=== PATIENT | male | born 1995 | race Caucasian/White ===

== ENCOUNTER 2024-12-21 11:08 | Outpatient (CLI) | payer OTHER, SELFPAY ==
--- NOTE | ~2024-12-21 | XR_ITS ---
EXAMINATION: XR hand BI arthritis min 3V, 12/21/2024 11:30 CDT HISTORY: M79.643 - Pain in unspecified hand COMPARISON: No comparisons available. Findings: No acute fracture or malalignment. Minimal degenerative changes, no erosions are identified Soft tissues unremarkable. Impression: No acute fracture or malalignment. Reviewed, dictated and finalized at location A. Impression: No acute fracture or malalignment.
[2024-12-21 12:00] LABS: Hematocrit 39.2 % (42.0-52.0); Hemoglobin 13.1 g/dL (14.0-18.0); Mean Corpuscular HGB Conc 33.4 g/dl (32-36); Mean Corpuscular Hemoglobin 29.9 pg (26-34); Mean Corpuscular Volume 89.5 fl (80-100); Platelet Count Result 186 k/mm3 (150-375); Red Blood Count 4.38 M/mm3 (4.6-6.20); White Blood Count 6.4 K/mm3 (4.5-10.0)
[2024-12-21 12:23] LABS: Alanine Aminotransferase 68 U/L (6-50); Albumin Level 4.4 g/dL (3.5-5.1); Alkaline Phosphatase 77 U/L (38-126); Anion Gap 8 mmol/L (4-12); Aspartate Amino Transferase 47 U/L (17-59); Bilirubin,Total 0.8 mg/dL (0.2-1.3); Blood Urea Nitrogen 14 mg/dL (9-20); Calcium 9.0 mg/dL (8.4-10.2); Carbon Dioxide 30 mmol/L (22-30); Chloride 103 mmol/L (98-107); Cholesterol 185 mg/dL (0-200); Estimated Glomerular Filt Rate > 60; Glucose 103 mg/dL (65-110); HDL Direct 24 mg/dL; Potassium 4.3 mmol/L (3.4-5.0); Sodium 141 mmol/L (137-145); Total Protein 7.5 g/dL (6.3-8.2); Triglycerides 218 mg/dL (<150)
[2024-12-21 12:58] LABS: Thyroid Stimulating Hormone 0.910 uIU/mL (0.465-4.680)
== END 2024-12-21 11:09 | disposition home or self-care (01) ==
LOC: ANHIMG 11:10
PROVIDERS: PCP Nurse Practitioner Adult Health; Visit Provider Plastic Surgery
DX: Z00.00 Encounter for general adult medical examination without abnormal findings (principal); M67.441 Ganglion, right hand
CPT/HCPCS: 36415; 73130; 80053; 80061; 84443; 85027

== ENCOUNTER 2025-02-14 11:07 | Day surgery (SDC) | payer OTHER, SELFPAY ==
[2025-01-20 10:08] VITALS: BMI 34.9
--- NOTE | 2025-02-14 07:06 | WPDHPUPDATE1 ---
History and Physical Update Update Date/Time: 02/14/25 07:06 Patient seen and examined in pre-operative holding area. No interval change in medical history or symptoms. Patient recalls previous discussion of benefits and alternatives to procedure. Continues to desire to proceed with right index finger mass excision . Reviewed procedure, post-op expectations and risks including but not limited to bleeding, infection, injury to tendon/nerve/vessel, decreased hand function, stiffness, RSD, no change or worsening of symptoms, recurrence. I discussed the possible use of assistants and their participation in the case. Patient stated understanding and signed the consent form wishing to proceed.
--- NOTE | 2025-02-14 07:07 | W.PM.PROC2 ---
Procedure Note - Detailed Date of Procedure 02/14/25 Pre-op Diagnosis Mass Right Index Finger Post-op Diagnosis Same Procedure Performed right index finger mass excision Surgeon Yue Barraza MD Special Delivery Clerk Jacklyn Beyer PA-C Anesthesia MAC Description of Procedure INFORMED CONSENT: The patient was seen and examined and marked in the pre-op area.? The patient signed the consent form. PROCEDURE IN DETAIL:The patient taken back to OR on the stretcher in supine position. Time out performed with anesthesia, surgeon and staff agreeing on patient's name site and surgery to be performed SCDs were placed on the lower extremities and inflated. A tourniquet was placed on {right} upper extremity and antibiotics given IV After anesthesia administered sedation I injected {4}cc 1%lido and 0.5% marcaine plain for digital block in the palm The?{right upper extremity}?was prepped and draped in sterile fashion the??{right upper extremity} was? exsanguinated with Esmarch bandage proximal to the mass and tourniquet inflated to 250mmHg Proceeded with making an elliptical incision around pre-existing scar patient had over the mass of the right index finger and extending this proximally distally and creating of Shereen radially based flap incision through skin and dermis with a 15 blade scalpel. Littler scissors were used to elevate this skin flap. I identified this round mass attached to Maury's ligament/fascia in the deep tissue and I proceeded with circumferential dissection of this mass with 15 blade scalpel and Littler scissors. The radial neurovascular bundle was protected throughout the procedure. I irrigated with normal saline after the mass had been excised and closed with 4-0 chromic. A dressing of xeroform, 4x4, karsten, and tube gauze was appliedafter the tourniquet was let down noting the hand was warm and well perfused. The patient was then awaken from anesthesia and transferred to the recovery room in stable condition.? Complications - none EBL- 0cc Disposition - home in stable condition Jacklyn Beyer PA-C was essential for positioning, retraction, closure and dressing placement. [facility] [place] Billing Surgery - Charge Forward: Surgery Billing ([id number] [id number] for jacklyn)
--- NOTE | 2025-02-14 11:04 | P.PNAN_ITS ---
Anes - Initial Pre Proc Eval Procedure: Operation Date: 02/14/25 12:45 Proposed Procedures p Excision Mass Right Index Finger - Yue Barraza MD Date/Time: 02/14/25 11:04 Surgeon: Yue Barraza MD Pre Op Diagnosis: Mass Right Index Finger Patient Data Age: 29 Gender: M Height: 1.91 m Weight: 124 kg Allergies Allergy/AdvReac Type Severity Reaction Status Date / Time No Known Allergies Allergy Verified 02/02/25 09:27 Home Medications ?Medication ?Instructions ?Recorded ?Confirmed ?Type ascorbate calcium (vitamin C) 814 mg PO DAILY 02/02/25 History mg/gram oral powder (Vitamin C (ascorbate calcium)) Patient hx anesthesia problems: none Family hx anesthesia problems: none Results Review: All pre-operative results and documents have been reviewed as part of the pre- operative evaluation. [facility]LY [facility], [facility] Social History Social History Smoking status: Never smoker Second hand tobacco smoke exposure: No Substance use: never Substance use type: does not use Living arrangements: with family Additional living arrangements comments: Spiritual care concerns: No Anes - Eval Final PreProcedure Day of Procedure 02/14/25 11:04 Heart: regular rate and rhythm Lungs: clear to auscultation Airway: Mallampati scale class II Neurological: alert and oriented Last oral intake: >/= 8 hours ASA classification: I Anesthetic plan: proceed Anesthesia type and monitoring: monitored anesthesia care Results Review: All pre-operative results and documents have been reviewed as part of the pre- operative evaluation. Informed Consent: The patient's anesthetic plan and its attendant risks and benefits were discussed with the patient/family/POA. Questions were solicited and answers provided to the satisfaction of the patient/family/POA.
[2025-02-14 11:39] VITALS: BP 141/78; PULSE 63; RESP 18; TEMP 36.6; O2SAT 100
[2025-02-14] MEDS: ACETAMINOPHEN 500 MG TABLET 1000 MG PO (11:44)
[2025-02-14] MEDS: LACTATED RINGERS 1,000 ML 30 ML IV CONT (12:05)
[2025-02-14] MEDS: ceFAZolin SODIUM 2 GM/20 ML SW SYRINGE IV PUSH (12:24)
[2025-02-14] MEDS: BUPivacaine HCL 0.5% 10 ML AMP (12:33)
[2025-02-14] MEDS: LIDOCAINE 1% LOCAL INJ 20 ML VIAL (12:34)
[2025-02-14 12:45] VITALS: BP 130/91; PULSE 74; RESP 16; O2SAT 98
[2025-02-14 13:05] VITALS: BP 135/85; PULSE 70; RESP 18; O2SAT 100
== END 2025-02-14 13:13 | disposition home or self-care (01) ==
LOC: ASC 11:29
PROVIDERS: PCP Nurse Practitioner Adult Health; Visit Provider Plastic Surgery
PROC: (CPT 26116; principal; 2025-02-14 12:45)
DX: M79.89 Other specified soft tissue disorders (principal)
CPT/HCPCS: 26116

== ENCOUNTER 2025-02-14 14:14 | Outpatient (NON) | payer OTHER, SELFPAY ==
--- NOTE | 2025-02-14 | S_PTH ---
PATIENT: Jose Umaña LOC: [facility] U#:[id number] AGE/SX: 29/M ROOM: RE02/14/[address]: Yue Barraza MD : 1995 BED: DIS: 02/14/2025 SPEC #: [id number] RECD: 02/16/25 07:23 STATUS: BARNDON REQ #: [id number] LEANN: 02/14/25 00:[address]: Yue Barraza DEPT: [facility] Surgical RECD BY: Brando Gonzalez ENTERED: 02/16/25 07:24 SP TYPE: Surgical OTHR DR: Abigail Dewitt APRN Tissues: A - Mass Procedures: Hematoxylin and Eosin Stain Gross and Microscopic Level 3
--- OUTSIDE RECORDS SUMMARY | 2025-02-16 00:50 | XMS_ITS ---
Author Organization Unknown ENCOUNTERS Encounter Performer Location Date Diagnosis Diagnosis Status Outpatient [place] [id number] [address] [id number] [facility] Out[facility] [place] [id number] [address] [address] [id number] [facility] *Note: Encounters from your own facility or health system may be excluded. Allergies, Adverse Reactions, Alerts Allergen Type Severity Identification Date Medications Name Date Quantity Days Supplied GPI Number
== END 2025-02-14 14:15 | disposition home or self-care (01) ==
LOC: ANHLAB 02-15 14:15
PROVIDERS: PCP Nurse Practitioner Adult Health; Visit Provider Plastic Surgery
DX: R22.31 Localized swelling, mass and lump, right upper limb (principal)
CPT/HCPCS: 88304